=== PATIENT | female | born 1990 | race Caucasian/White ===

== ENCOUNTER 2017-09-04 01:39 | Emergency (ER) | payer OTHER ==
[~2017-09-04] VITALS: Ht 160 cm; Wt 68.0 kg
--- NOTE | 2017-09-04 01:41 | NUR ---
pt bib , sent by Dr. You for report continued lower inner pelvic pain w/ ble numbness sensation s/p bladder reconstructive Sx x1000 yesterday morning, was sent home w/ FC, motrin for pain and cephalexin abx, took pain medications w/ no relief, seen at [place] for continued pain and given dilaudid 4mg w/ zofran for nausea while at [facility]. pt AOx4, afebrile w/ resp even & unlabored, continued lower pelvic pain, FC in place w/ clear yellow urine noted in FC bag, no vaginal bleeding, pt report has vaginal packing. pt in gown, on continuous monitoring. Pending further saige montez MD.
--- NOTE | 2017-09-04 01:55 | NUR ---
Dr. Muñoz at bedside for further eval.
--- NOTE | 2017-09-04 02:41 | NUR ---
Assist Dr. You, at bedside w/ exam. FC irrigation w/ NS 210ml and vaginal packing removed w/ FC by Dr. You. Pt report continues to have pain even after packing removed.
--- NOTE | 2017-09-04 02:58 | NUR ---
pt assisted to bedpan. pt voided 300ml clear yellow urine, report continues to have lower pelvic pain. Dr. You at bedside reevaluating pt.
--- NOTE | 2017-09-04 03:01 | NUR ---
pt took her own pain medication for motrin and cephalexin per Dr. You request.
--- NOTE | 2017-09-04 03:28 | NUR ---
Pt reports feeling better after pain medications, report pain tolerable at this time. Patient discharged to home in stable condition. Written and verbal after care instructions given. Patient verbalizes understanding of instruction.
[2017-09-04 03:29] VITALS: BP 125/72
== END 2017-09-04 03:30 | disposition home or self-care (01) ==
LOC: ER 01:43
DX: R10.2 Pelvic and perineal pain (principal); G89.18 Other acute postprocedural pain
CPT/HCPCS: 51702; 99284; A4606; Z7610